=== PATIENT | female | born 1985 | race African-American/Black ===

== ENCOUNTER 2020-11-28 10:42 | Emergency (ER) | payer MEDICAID, OTHER ==
[~2020-11-28] VITALS: Ht 170.2 cm; Wt 65.3 kg
[2020-11-28] MEDS ORDERED: ONDANSETRON 4 MG/2 ML VIAL IV ONE (11:00)
[2020-11-28] MEDS ORDERED: IV NORMAL SALINE 500 ML IV ONE (11:00)
[2020-11-28] MEDS ORDERED: KETOROLAC TROMETHAMINE 15 MG INJ IVP ONE (11:00)
[2020-11-28] MEDS ORDERED: KETOROLAC TROMETHAMINE 15 MG INJ ONE (11:08)
[2020-11-28] MEDS ORDERED: ONDANSETRON 4 MG/2 ML VIAL ONE (11:08)
[2020-11-28 11:11] LABS: BASOPHILS % (AUTO) 0.6 % (0.0-2.0); EOSINOPHILS # (AUTO) 0.7 K/uL (0.0-0.7); EOSINOPHILS % (AUTO) 9.2 % (0.0-7.0); HEMATOCRIT 34.1 % (31.2-41.9); HEMOGLOBIN 11.5 g/dL (10.9-14.3); LYMPHOCYTES # (AUTO) 1.7 K/uL (20.0-40.0); LYMPHOCYTES % (AUTO) 23.8 % (20.5-51.5); MEAN CORPUSCULAR HEMOGLOBIN 34.1 uug (24.7-32.8); MEAN CORPUSCULAR HGB CONC 34 g/dL (32.3-35.6); MEAN CORPUSCULAR VOLUME 101.3 fL (75.5-95.3); MONOCYTES # (AUTO) 0.4 K/uL (2.0-10.0); MONOCYTES % (AUTO) 6.2 % (0.0-11.0); NEUTROPHILS # (AUTO) 4.3 K/uL (1.8-8.9); NEUTROPHILS % (AUTO) 60.2 % (38.5-71.5); PLATELET COUNT (AUTO) 263 K/uL (179-408); RED BLOOD CELL COUNT(AUTO) 3.37 MIL/uL (3.63-4.92); WHITE BLOOD COUNT (AUTO) 7.1 K/uL (3.8-11.8)
[2020-11-28 11:15] LABS: CREATININE 0.7 mg/dL (0.6-1.3); POTASSIUM 3.9 mmol/L (3.5-5.1)
--- NOTE | 2020-11-28 11:19 | NUR ---
Pt is in room #1b. Dr Chadwick evaluated the pt.
[2020-11-28 11:21] LABS: BILIRUBIN,TOTAL 0.4 mg/dL (0.2-1.0)
[2020-11-28] MEDS ORDERED: IBUP-1955 PO (11:56)
--- NOTE | 2020-11-28 12:15 | NUR ---
PT WAS D/C'd TO HOME. D/C INSTRUCTIONS GIVEN TO THEPT BY DR CLAROS.
[2020-11-28 12:16] VITALS: BP 118/72
== END 2020-11-28 12:17 | disposition home or self-care (01) ==
LOC: ER 10:42
DX: R07.9 Chest pain, unspecified (principal); R68.83 Chills (without fever); R05 Cough; Z20.822 Contact with and (suspected) exposure to COVID-19; J45.909 Unspecified asthma, uncomplicated; Z88.5 Allergy status to narcotic agent
CPT/HCPCS: 36415; 71045; 80053; 84484; 85025; 87426; 93005; 96361; 96374; 96375; 99285; J1885; J2405; U0003; 70030-TC; A4663; J7030